=== PATIENT | female | born 1985 | race Caucasian/White ===

== ENCOUNTER 2016-08-05 22:07 | Emergency (ER) | payer MEDICAID ==
[~2016-08-05] VITALS: Ht 160 cm; Wt 77.0 kg
[~2016-08-05 22:07] MED LIST: FERR-31 PO; FOLI-49 PO; IBUP-1542 PO; PRENAT PO
[2016-08-05 22:09] VITALS: Ht 160 cm; Wt 77.0 kg
[2016-08-05] MEDS ORDERED: DIPHENHYDRAMINE 50 MG INJ IM ONE (22:30)
[2016-08-05 22:54] LABS: ADD SCAN DIFF NO
[2016-08-05 22:55] LABS: BASOPHILS % 0.2 % (0.0-2.0); EOSINOPHILS # 0.2 10^3/ul (0.0-0.5); EOSINOPHILS % 2.1 % (0.0-7.0); HEMATOCRIT 34.3 % (37.0-47.0); HEMOGLOBIN 11.6 g/dl (12.0-16.0); LYMPHOCYTES # 2.4 10^3/ul (0.8-2.9); LYMPHOCYTES % 28.3 % (15.0-51.0); MEAN CORPUSCULAR HEMOGLOBIN 29.1 pg (29.0-33.0); MEAN CORPUSCULAR HGB CONC 33.8 g/dl (32.0-37.0); MEAN CORPUSCULAR VOLUME 86.2 fl (82.0-101.0); MEAN PLATELET VOLUME 11.3 fl (7.4-10.4); MONOCYTE # 0.6 10^3/ul (0.3-0.9); MONOCYTES % 7.3 % (0.0-11.0); NEUTROPHIL # 5.1 10^3/ul (1.6-7.5); NEUTROPHILS % 60.8 % (39.0-77.0); PLATELET COUNT 236 10^3/UL (140-415); RED BLOOD COUNT 3.98 10^6/ul (4.20-5.40); RED CELL DISTRIBUTION WIDTH 12.8 % (11.5-14.5); WHITE BLOOD COUNT 8.4 10^3/ul (4.8-10.8)
[2016-08-05 22:57] LABS: ADD UMIC YES; URINE BILIRUBIN (Dip) NEGATIVE (NEGATIVE); URINE BLOOD (Dip) TRACE (NEGATIVE); URINE COLOR LT. YELLOW (YELLOW); URINE GLUCOSE (Dip) NEGATIVE (NEGATIVE); URINE KETONES (Dip) NEGATIVE (NEGATIVE); URINE LEUKOCYTE ESTERASE (Dip) NEGATIVE (NEGATIVE); URINE NITRITE (Dip) NEGATIVE (NEGATIVE); URINE TOTAL PROTEIN (Dip) TRACE (NEGATIVE); URINE UROBILINOGEN (Dip) 0.2 E.U./dL (0.1-1.0)
[2016-08-05 23:06] LABS: BACTERIA,URINE MODERATE; SQUAMOUS EPITHELIAL CELL,UR MANY; URINE RBCS 0-2 /HPF (0)
[2016-08-05 23:08] LABS: ALBUMIN 3.1 g/dl (3.3-4.9); ALBUMIN/GLOBULIN RATIO 0.88; CALCIUM 8.7 mg/dl (8.4-10.2); CREATININE 0.44 mg/dl (0.44-1.00); POTASSIUM 3.8 mmol/L (3.5-5.1); TOTAL PROTEIN 6.6 g/dl (6.1-8.1)
--- NOTE | 2016-08-05 23:23 | ERD ---
ER Documentation Chief Complaint Date/Time DATE: 08/05/16 TIME: 23:21 Chief Complaint Pt reports all over itchiness for a month. Pt 8 months preg HPI 31-year-old female presents to emergency department for complaints of itching all over the body for 1 month now. Patient denies eating something new or different. Patient is approximately 8 months , denies any abdominal pain flank pain. Patient denies any hematuria or dysuria. Patient denies any fever or chills. Patient denies any family members with the same type of rash. Patient did not take any medications to help with him. Patient denies any lip swelling, tongue swelling or stridor. Patient denies any shortness of breath or wheezing. Patient denies any problems with the . Patient is due date is next month, September 15. ROS All systems reviewed and are negative except as per history of present illness. Medications Home Meds Active Scripts Ibuprofen* (Motrin*) 600 Mg Tab, 600 MG PO Q6, #20 TAB Prov:JAZLYN KEMP MD 10/08/14 Reported Medications Ferrous Sulfate (Iron Supplement) 1 Tab Tablet, 1 TAB PO DAILY 09/10/14 Folic Acid* (Folic Acid*) 1 Mg Tablet, 1 MG PO DAILY, TAB 09/10/14 Multivit/Min/Fol Ac/Iron/Pren* ( S*) 1 Tab Tab, 1 TAB PO DAILY, TAB 07/13/14 Allergies Allergies: Coded Allergies: No Known Allergy (Unverified , 07/13/14) PMhx/Soc Medical and Surgical Hx: pt denies Medical Hx, pt denies Surgical Hx History of Surgery: No Anesthesia Reaction: No Hx Neurological Disorder: No Hx Respiratory Disorders: No Hx Cardiac Disorders: No Hx Psychiatric Problems: No Hx Miscellaneous Medical Probl: No Hx Alcohol Use: No Hx Substance Use: No FmHx Family History: No coronary disease, No diabetes, No other Physical Exam Vitals Vital Signs Date Time Temp Pulse Resp B/P Pulse Ox O2 Delivery O2 Flow Rate FiO2 08/05/16 22:09 98.3 93 18 129/82 99 Physical Exam GENERAL: The patient is well developed and appropriate for usual state of health, in no apparent distress. CHEST: Clear to auscultation bilaterally. There are no rales, wheezes or rhonchi. HEART: Regular rate and rhythm. No murmurs, clicks, rubs or gallops. No S3 or S4. ABDOMEN: Soft, gravid abdomen. Good bowel sounds. No rebound or guarding. No gross peritonitis. No gross organomegaly or masses. No Zhang sign or McBurney point tenderness. BACK: No midline or flank tenderness. EXTREMITIES: Equal pulses bilaterally. There is no peripheral clubbing, cyanosis or edema. No focal swelling or erythema. Full range of motion. Grossly neurovascularly intact. NEURO: Alert and oriented. Cranial nerves 2-12 intact. Motor strength in all 4 extremities with 5/5 strength. Sensation grossly intact. Normal speech and gait. SKIN: Maculopapular rash noted over the body. There is no apparent ecchymosis or petechia. The skin is warm and dry. HEMATOLOGIC AND LYMPHATIC: There is no evidence of excessive bruising or lymphedema. No gross cervical, axillary, or inguinal lymphadenopathy. Result Diagram: 08/05/16224108/05/162241 Results 24 hrs Laboratory Tests Test 08/05/16 22:42 White Blood Count 8.410^3/ul Red Blood Count 3.9810^6/ul Hemoglobin 11.6g/dl Hematocrit 34.3% Mean Corpuscular Volume 86.2fl Mean Corpuscular Hemoglobin 29.1pg Mean Corpuscular Hemoglobin Concent 33.8g/dl Red Cell Distribution Width 12.8% Platelet Count 74038^3/UL Mean Platelet Volume 11.3fl Neutrophils % 60.8% Lymphocytes % 28.3% Monocytes % 7.3% Eosinophils % 2.1% Basophils % 0.2% Nucleated Red Blood Cells % 0.0/100WBC Neutrophils # 5.110^3/ul Lymphocytes # 2.410^3/ul Monocytes # 0.610^3/ul Eosinophils # 0.210^3/ul Basophils # 0.010^3/ul Nucleated Red Blood Cells # 0.010^3/ul Urine Color LT. YELLOW Urine Clarity CLEAR Urine pH 7.0 Urine Specific Vernalis 1.010 Urine Ketones NEGATIVE Urine Nitrite NEGATIVE Urine Bilirubin NEGATIVE Urine Urobilinogen 0.2 E.U./dL Urine Leukocyte Esterase NEGATIVE Urine Microscopic RBC 0-2/HPF Urine Microscopic WBC 2-5/HPF Urine Squamous Epithelial Cells MANY Urine Bacteria MODERATE Urine Hemoglobin TRACE Urine Glucose NEGATIVE% Urine Total Protein TRACE Sodium Level 134mmol/L Potassium Level 3.8mmol/L Chloride Level 108mmol/L Carbon Dioxide Level 22mmol/L Anion Gap 8 Blood Urea Nitrogen 10mg/dl Creatinine 0.44mg/dl Glucose Level 111mg/dl Calcium Level 8.7mg/dl Total Bilirubin 0.0mg/dl Direct Bilirubin 0.00mg/dl Indirect Bilirubin 0.0mg/dl Aspartate Amino Transf (AST/SGOT) 14IU/L Alanine Aminotransferase (ALT/SGPT) 21IU/L Alkaline Phosphatase 389IU/L Total Protein 6.6g/dl Albumin 3.1g/dl Globulin 3.50g/dl Albumin/Globulin Ratio 0.88 Lipase 35U/L Current Medications Medications (Trade) Dose Ordered Sig/Deepika Route PRN Reason Start Time Stop Time Status Last Admin Dose Admin Diphenhydramine HCl (Benadryl) 50 mg ONCE ONCE IM 08/05/16 22:30 08/05/16 22:31 DC 08/05/16 22:42 Famotidine (Pepcid) 20 mg ONCE ONCE PO 08/06/16 00:00 08/06/16 00:01 DC 08/05/16 23:55 Benadryl was given here in the emergency department, after treatment, patient verbalized feeling much better. Procedures/MDM Medical decision making: Patient's rash nonspecific at this time, liver function tests are normal, can be allergy, can be dermatitis. No symptoms of any anaphylactic shock, stridor, oral airway obstruction. No symptoms of any contagious rash at this time. Prescription was given for Benadryl, Pepcid, is advised to follow-up with primary care doctor in 2-3 days for reevaluation of symptoms. Patient was advised to return to emergency department for any worsening symptoms Departure Diagnosis: Primary Impression: Rash Condition: Stable Patient Instructions: Self-Care for Skin Rashes DYLON LANDRUM NP Aug 05, 2016 23:23
[2016-08-06] MEDS ORDERED: FAMOTIDINE 20 MG TAB PO ONE
[2016-08-06] MEDS ORDERED: FAMO-18 PO (00:13)
[2016-08-06] MEDS ORDERED: BEN50 PO (00:13)
== END 2016-08-06 00:29 | disposition home or self-care (01) ==
LOC: FTE 22:07
DX: R21 Rash and other nonspecific skin eruption (principal)
CPT/HCPCS: 80053; 81001; 83690; 85025; J1200; Z7610; 36415; 81003; 96372

== ENCOUNTER 2016-08-09 12:27 | Outpatient (CLI) | payer MEDICAID ==
[~2016-08-09] VITALS: Ht 152.4 cm; Wt 76.5 kg
[~2016-08-09 12:27] MED LIST changes: +BEN50 PO; +FAMO-18 PO
[2016-08-09 12:38] VITALS: BP 111/68; PULSE 19; RESP 18; Ht 152.4 cm; Wt 76.5 kg
--- NOTE | 2016-08-09 13:35 | RADRPT ---
PROCEDURE: US OB biophysical profile. CLINICAL INDICATION: decreased movements, abdominal pain TECHNIQUE: Multiple sonographic images of the pelvis were obtained. The images were reviewed on a PACS workstation. COMPARISON: No prior studies are available for comparison. FINDINGS: There is a single viable intrauterine gestation. Cardiac activity is present with 137 beats per min [place]. There is a vertex presentation. The placenta is anterior. There is no evidence of placental abruption. There is a decreased amount of amniotic fluid with an ROBSON = 7.0 cm. Biophysical profile: movement 2/2 tone 2/2. breathing 2/2 ORBSON 2/2 Total 11/28 RPTAT: AA . IMPRESSION: Normal biophysical profile. Slightly decreased ROBSON. .Marlon Alexis MD, Date Time Electronically viewed and signed by .Marlon Alexis MD, on 08/09/2016 13:35 .S/
[2016-08-09 13:52] LABS: ALBUMIN 2.9 g/dl (3.3-4.9)
[2016-08-09 13:55] LABS: BILIRUBIN,INDIRECT 0.2 mg/dl (0-1.1); BILIRUBIN,TOTAL 0.2 mg/dl (0.2-1.3); TOTAL PROTEIN 6.3 g/dl (6.1-8.1)
[2016-08-09] MEDS ORDERED: URSO300C3 PO (14:26)
--- NOTE | 2016-08-09 14:49 | QN ---
Documentation Comment 31-year-old with IUP at 34 weeks and 3 days with care with Dr. Woodson presented to triage with complaint of lower abdominal pain and whole body itching. Patient reports itching of the whole body as well as palms. She presented about 2 weeks ago with the same symptoms. She had her LFT at that time that was normal. She was started on Benadryl that did not help with the itching then subsequently she started on ursodiol 2 days ago but is not effective. Patient denies any leaking of fluid, vaginal bleeding or decreased movement or contractions. Her LFT today normal. Patient reports prior episodes of same problem in prior she delivered 4 weeks earlier. Physical examination: General appearance: Alert and oriented 4 patient is not in any acute distress Abdomen: soft, non tender. Fundal height consistent with gestational age. NST: Category 1 BPP: 11/28 Chemistry Test 08/09/16 13:15 Total Bilirubin 0.2mg/dl (0.2-1.3) Direct Bilirubin 0.00mg/dl (0.00-0.20) Indirect Bilirubin 0.2mg/dl (0-1.1) Aspartate Amino Transf (AST/SGOT) 17IU/L (15-46) Alanine Aminotransferase (ALT/SGPT) 24IU/L (13-69) Alkaline Phosphatase 334IU/L (42-121) H Total Protein 6.3g/dl (6.1-8.1) Albumin 2.9g/dl (3.3-4.9) L Bile acid drawn today. LFTs today normal Assessment: 31-year-old with IV at 34 weeks and 3 days Whole body itching, including palms. Did not resolve with Benadryl. Currently receiving ursodiol 3 times daily 300 mg cannot rule out cholestasis of . Patient similar episodes in prior status post delivery. Bile acids drawn today Increased risk of cholestasis and subsequent discussed She was advised to receive a dose of steroids today and follow up tomorrow in the triage with a second dose of steroids due to possibility of delivery below 37 weeks if confirmed to have cholelithiasis of Steroids could potentially also help with her itching as well. Promethazine as needed 3 times daily also advised if she continued to have itching Patient to continue having testing through the NST BPP every 3 days until the bile acids are available with a close follow-up and monitoring with primary OB Dr. Woodson next labor precaution for the cazares count discussed with the patient. Patient verbalized understanding plan of care. STEFANY NELSON MD Aug 09, 2016 14:49
[2016-08-09] MEDS ORDERED: BETAMET NA PHOS/AC(6 MG/ML) 5ML INJ IM ONE (15:00)
--- NOTE | 2016-08-09 15:22 | TRIAGE ---
OB Triage Datetime Report Generated by CPN: 08/09/2016 15:22 Datetime: 08/09/2016 15:00 Stage of : OB Triage Maternal Assessment Level of Consciousness: Fully Conscious DTR's/Clonus: DTRs 1+ Headache: Denies Breath Sounds, Left: Clear and Equal Breath Sounds, Right: Clear and Equal Nausea/Vomiting: Denies RUQ Epigastric Pain: Denies Labor Evaluation Frequency: IRRE Monitor Mode: External Duration (sec)2399: 40-60 Quality: Mild Pattern: Normal: <= 5 Contractions in 10 Minutes Resting Tone Reed: Relaxed Heart Rate FHR Baseline Rate: 125 Monitor Mode: External US Variability: Moderate 6-25 bpm Accelerations: 15X15 Decelerations: None Category: Category I Pain Assessment Pain Scale: 4 Pain Presence: Constant Pain Type: Dull Pain Location: Abdomen Pain Goal: 3 Vaginal Exam Dilatation (cms): 0.0 Effacement (%): 0 Station: -3 Exam By: ANTHONYAMILASHONDA,RN Membrane Status: Intact Datetime: 08/09/2016 14:44 Maternal Assessment Level of Consciousness: Fully Conscious DTR's/Clonus: DTRs 1+ Headache: Denies Blurred Vision: No Respiratory Effort: Unlabored Breath Sounds, Left: Clear and Equal Breath Sounds, Right: Clear and Equal Nausea/Vomiting: Denies RUQ Epigastric Pain: Denies Facial Edema: None Labor Evaluation Frequency: IRRE Monitor Mode: External Duration (sec)2399: 40-60 Quality: Mild Pattern: Normal: <= 5 Contractions in 10 Minutes Resting Tone Reed: Relaxed Heart Rate FHR Baseline Rate: 125 Monitor Mode: External US Variability: Moderate 6-25 bpm Accelerations: 15X15 Decelerations: None Category: Category I Pain Assessment Pain Scale: 4 Pain Presence: Constant Pain Type: Dull Pain Location: Abdomen Pain Goal: 3 Membrane Status: Intact Datetime: 08/09/2016 14:02 Stage of : OB Triage Maternal Assessment Level of Consciousness: Fully Conscious DTR's/Clonus: DTRs 1+ Headache: Denies Breath Sounds, Left: Clear and Equal Breath Sounds, Right: Clear and Equal Nausea/Vomiting: Denies RUQ Epigastric Pain: Denies Labor Evaluation Frequency: IRRE Monitor Mode: External Duration (sec)2399: 40-60 Quality: Mild Pattern: Normal: <= 5 Contractions in 10 Minutes Resting Tone Reed: Relaxed Heart Rate FHR Baseline Rate: 125 Monitor Mode: External US Variability: Moderate 6-25 bpm Accelerations: 15X15 Decelerations: None Category: Category I Pain Assessment Pain Scale: 4 Pain Presence: Constant Pain Type: Dull Pain Location: Abdomen Pain Goal: 3 Membrane Status: Intact Datetime: 08/09/2016 13:01 Comments: UNABLE TO KEEP BABY ON MONIOTR. Datetime: 08/09/2016 12:40 Heart Rate FHR Baseline Rate: 135 Monitor Mode: External US Variability: Moderate 6-25 bpm Accelerations: 15X15 Decelerations: None Category: Category I Datetime: 08/09/2016 12:37 Assessment Type: Triage Maternal Assessment Level of Consciousness: Fully Conscious DTR's/Clonus: DTRs 2+; No Clonus Headache: Denies Blurred Vision: No Respiratory Effort: Unlabored; Regular Rhythm; Equal Expansion Breath Sounds, Left: Clear and Equal Breath Sounds, Right: Clear and Equal Nausea/Vomiting: Denies RUQ Epigastric Pain: Denies Lower Extremities Edema: None Degree: None Upper Extremities Edema: None Degree: None Facial Edema: None Fall Risk Assessment History of Falling: (0) No Secondary Diagnosis: (0) No Ambulatory Aid: (0) Bedrest/Nurse Assist IV Therapy: (0) No Gait: (0) Normal/Bedrest/Immobile Mental Status: (0) Oriented to Own Ability Fall Score: 0 Fall Risk Score Definition: No Risk: No action required Datetime: 08/09/2016 12:36 EGA: 34.3 Datetime: 08/09/2016 12:20 Time of Arrival: 08/09/2016 12:20 Arrived By: Wheelchair Arrived From: Home Chief Complaint: PT CAME IN C/O OF LOWER ABDOMINAL PAIN AND GENERALIZED ITCHING Movement: Present Contractions: Denies/Absent Rupture of Membranes: Denies Vaginal Bleeding: None Vaginal Discharge: Denies Recent Sexual Intercouse: Denies Abdominal Trauma: Not Applicable Patient Complaints: Other Additional Patient Complaints: NONE Initial Plan: MONITOR, NST, BPP, LAB WORK AND BETAMETHASONE
[2016-08-15 18:20] LABS: CHENODEOXYCHOLIC ACID 1.2 umol/L (< OR = 3.1); CHOLIC ACID 1.7 umol/L (< OR = 1.8); DEOXYCHOLIC ACID <0.5 umol/L (< OR = 2.4); TOTAL BILE ACIDS 2.9 umol/L (< OR = 6.8)
== END 2016-08-09 15:30 | disposition home or self-care (01) ==
LOC: OBT 12:27 → L-D 12:28 → OBT 15:30
PROVIDERS: ATTEND Obstetrics & Gynecology
DX: O26.893 Other specified pregnancy related conditions, third trimester (principal); O36.8130 Decreased fetal movements, third trimester, not applicable or unspecified; R10.30 Lower abdominal pain, unspecified; Z3A.34 34 weeks gestation of pregnancy
CPT/HCPCS: 36415; 76818; 80076; 83789; 96372; J0702; Z7500; G0463

== ENCOUNTER 2016-08-10 13:52 | Outpatient (CLI) | payer MEDICAID ==
[~2016-08-10] VITALS: Ht 154.9 cm; Wt 78.4 kg
[~2016-08-10 13:52] MED LIST changes: +URSO300C3 PO
[2016-08-10 14:00] VITALS: Ht 154.9 cm; Wt 78.4 kg
[2016-08-10 14:01] VITALS: BP 117/59; PULSE 78
--- NOTE | 2016-08-10 14:29 | RADRPT ---
PROCEDURE: US OB biophysical profile. CLINICAL INDICATION: decreased movements, labor TECHNIQUE: Multiple sonographic images of the pelvis were obtained. The images were reviewed on a PACS workstation. COMPARISON: Yesterday FINDINGS: There is a single viable intrauterine gestation. Cardiac activity is present with 123 beats per min [place]. There is a vertex presentation. The placenta is anterior. There is no evidence of placental abruption. There is a normal amount of amniotic fluid with an ROBSON = 14.0 cm. Biophysical profile: movement 2/2 tone 2/2. breathing 2/2 ROBSON 2/2 Total 11/28 RPTAT: AA . IMPRESSION: Normal biophysical profile. . .Marlon Alexis MD, MD Date Time Electronically viewed and signed by .Marlon Alexis MD, MD on 08/10/2016 14:28 .S/
[2016-08-10] MEDS ORDERED: BETAMET NA PHOS/AC(6 MG/ML) 5ML INJ IM ONE (14:30)
--- NOTE | 2016-08-10 15:56 | CONS ---
Date/Time of Note Date/Time of Note DATE: 08/10/16 TIME: 15:50 Consultation Date/Type/Reason Admit Date/Time Initial Consult Date August 10, 2016 OB triage consult Reason for Consultation The second dose of betamethasone was given . she will continue her care in [facility]ST clinic 24 HR Interval Summary Free Text/Dictation This patient is a 31 years old 3 para 2 whose EDC is September 09, 2016 which makes her 34 weeks and 4 days She has been seen in the clinic in the past due to cholestasis of and she was placed on Actigall 300 mg taking 3 times a day today she came here for further monitoring and to receive the second injection of betamethasone in case of premature delivery On examining her her vital signs are stable blood pressure 117/59 pulse rate 78 respiration 18 temperature 98 point heart tone appear to be normal with good variability and acceleration no deceleration she has very rare contractions which is not felt by the pain Current Medications Medications (Trade) Dose Ordered Sig/Deepika Route PRN Reason Start Time Stop Time Status Last Admin Dose Admin Betamethasone Acet/Betameth SodPhos (Celestone Soluspan) 12 mg ONCE ONCE IM 08/10/16 14:30 08/10/16 14:31 DC 08/10/16 14:31 12 MG Detailed Summary Eyes: No discharge, No no complaints, No other, No pain, No redness, No visual change ENT: No bleeding, No congestion, No discharge, No dysphagia, No no complaints, No other, No pain, No sore throat Respiratory: No cough, No no complaints, No other, No pain, No pleuritic pain, No shortness of breath, No sputum, No wheezing Cardiovascular: No chest pain, No edema, No lightheadedness, No no complaints, No orthopenea, No other, No palpitations, No paroxysmal nocturnal dyspnea Gastrointestinal: No blood, No constipation, No decreased appetite, No diarrhea , No flatus, No nausea, No no complaints, No other, No pain, No passing stool, No vomiting Genitourinary: No bleeding, No discharge, No dysuria, No flank pain, No hematuria, No no complaints, No other Musculoskeletal: No back pain, No bone/joint pain, No neck pain, No no complaints, No other, No restricted range of motion, No swelling Skin: other (Some erythema of both hands but not anywhere else in her body), No bruising, No erythema, No laceration, No no complaints, No pruritis, No rash, No skin lesions Neurologic: No confusion, No dizziness, No focal-weakness, No headache, No no complaints, No other, No seizure, No syncope Endocrine: No dry skin, No no complaints, No other, No polydypsia, No polyuria , No temp intolerance Lymphatic: No adenopathy, No lymphadema, No no complaints, No other, No tender nodes Exam/Review of Systems Vital Signs Vitals Vital Signs Date Time Temp Pulse Resp B/P Pulse Ox O2 Delivery O2 Flow Rate FiO2 08/10/16 14:01 98.2 78 117/59 PATY GARCIA MD Aug 10, 2016 15:56
== END 2016-08-10 15:30 | disposition home or self-care (01) ==
LOC: L-D 13:52 → OBT 13:52
PROVIDERS: ATTEND Obstetrics & Gynecology
DX: O26.613 Liver and biliary tract disorders in pregnancy, third trimester (principal); K83.1 Obstruction of bile duct; Z3A.34 34 weeks gestation of pregnancy
CPT/HCPCS: 76818; 96372; J0702; Z7500; G0463

== ENCOUNTER 2016-08-22 14:43 | Inpatient (IN) | payer MEDICAID ==
[~2016-08-22] VITALS: Ht 154.9 cm; Wt 70.0 kg
[~2016-08-22 14:43] MED LIST changes: -BEN50 PO; -FAMO-18 PO; -IBUP-1542 PO
[2016-08-22 14:54] VITALS: Ht 154.9 cm; Wt 70.0 kg
[2016-08-22 14:55] VITALS: BP 121/74; PULSE 85; RESP 20
[2016-08-22] MEDS ORDERED: METHYLERGONOVINE 0.2 MG INJ IM PRN (15:00)
[2016-08-22] MEDS ORDERED: MISOPROSTOL 200 MCG TAB PR PRN (15:00)
[2016-08-22] MEDS ORDERED: BUTORPHANOL 2 MG INJ IV PRN (15:00)
[2016-08-22] MEDS ORDERED: ACETAMINOPHEN/CODEINE #3 TAB PO PRN (15:00)
[2016-08-22] MEDS ORDERED: OXYTOCIN 30 UNITS/LR 500 ML IV SCH ×2 (15:00)
[2016-08-22] MEDS ORDERED: CARBOPROST 250 MCG INJ IM PRN (15:00)
[2016-08-22] MEDS ORDERED: IBUPROFEN 600 MG TAB PO PRN (15:00)
[2016-08-22] MEDS ORDERED: OXYTOCIN 30 UNITS/LR 500 ML IV PRN (15:00)
[2016-08-22] MEDS ORDERED: LIDOCAINE 1% (MPF) 30 ML INJ INJ PRN (15:00)
[2016-08-22] MEDS: LACTATED RINGER'S 1,000 ML IV SCH ×2 (15:11→22:38)
[2016-08-22 15:58] LABS: ADD SCAN DIFF NO
[2016-08-22 16:00] LABS: BASOPHILS % 0.2 % (0.0-2.0); EOSINOPHILS # 0.2 10^3/ul (0.0-0.5); EOSINOPHILS % 2.8 % (0.0-7.0); HEMATOCRIT 33.9 % (37.0-47.0); HEMOGLOBIN 11.2 g/dl (12.0-16.0); LYMPHOCYTES # 1.9 10^3/ul (0.8-2.9); LYMPHOCYTES % 23.3 % (15.0-51.0); MEAN CORPUSCULAR HEMOGLOBIN 28.7 pg (29.0-33.0); MEAN CORPUSCULAR VOLUME 86.9 fl (82.0-101.0); MEAN PLATELET VOLUME 11.9 fl (7.4-10.4); MONOCYTE # 0.5 10^3/ul (0.3-0.9); MONOCYTES % 6.4 % (0.0-11.0); NEUTROPHIL # 5.5 10^3/ul (1.6-7.5); NEUTROPHILS % 66.5 % (39.0-77.0); PLATELET COUNT 215 10^3/UL (140-415); WHITE BLOOD COUNT 8.2 10^3/ul (4.8-10.8)
[2016-08-22 16:09] LABS: INR 0.8; PROTIME 11.1 Sec (12.2-14.2); PT RATIO 0.9
[2016-08-22 16:10] LABS: PARTIAL THROMBOPLASTIN TIME 25.2 Sec (25.0-35.0)
[2016-08-22] MEDS ORDERED: DINOPROSTONE 10 MG VAG SUPP VAG ONE (16:30)
[2016-08-22 17:59] LABS: ADD UMIC YES; URINE BILIRUBIN (Dip) NEGATIVE (NEGATIVE); URINE BLOOD (Dip) TRACE (NEGATIVE); URINE COLOR LT. YELLOW (YELLOW); URINE GLUCOSE (Dip) NEGATIVE (NEGATIVE); URINE KETONES (Dip) NEGATIVE (NEGATIVE); URINE LEUKOCYTE ESTERASE (Dip) TRACE (NEGATIVE); URINE NITRITE (Dip) NEGATIVE (NEGATIVE); URINE TOTAL PROTEIN (Dip) 2+ (NEGATIVE); URINE UROBILINOGEN (Dip) 0.2 E.U./dL (0.1-1.0)
[2016-08-22] MEDS ORDERED: LACTATED RINGER'S 1,000 ML IV PRN (18:00)
[2016-08-22 18:08] LABS: BACTERIA,URINE MANY; SQUAMOUS EPITHELIAL CELL,UR MANY; URINE RBCS 0-2 /HPF (0)
[2016-08-22 18:11] LABS: ALBUMIN 2.8 g/dl (3.3-4.9)
[2016-08-22 18:12] LABS: POTASSIUM 3.7 mmol/L (3.5-5.1)
[2016-08-22 18:14] LABS: ALBUMIN/GLOBULIN RATIO 0.84; BILIRUBIN,INDIRECT 0.2 mg/dl (0-1.1); BILIRUBIN,TOTAL 0.2 mg/dl (0.2-1.3); CREATININE 0.53 mg/dl (0.44-1.00); TOTAL PROTEIN 6.1 g/dl (6.1-8.1)
[2016-08-22 18:15] LABS: CALCIUM 8.6 mg/dl (8.4-10.2); URIC ACID 5.2 mg/dl (3.1-7.9)
[2016-08-23] MEDS ORDERED: AL HYDROX/MG HYDROX/SIMETH 30 ML CUP PO ONE (02:30)
--- NOTE | 2016-08-23 04:53 | HP ---
Date/Time of Note Date/Time of Note DATE: 08/23/16 TIME: 04:36 OB - History Hx of Present Free Text/Dictation 30y.0 A0 at 36w2d was brought for induction for severe oligohyramnios with AFI1.8cm and also cholestasis was suspected due to generalized body itiching but SBA and ap was high admitted for induction of labor with cervidil Chief Complaint: for induction of labor for severe oligohydramnios Estimated Due Date: September 17, 2016 : 3 Para: 2 Spontaneous : 0 Therapeutic : 0 Care: Limited Care Ultrasounds: Normal mid trimester US Obstetrical Complications: Other (oligoharamnios) Medical Complications: Other (cholestasis) Past Family/Social History * Past Medical, Surgical, Family and Obstetric Histories reviewed from chart. Blood Type: O+ Rubella: immune RPR/VDRL: Negative GBS Status: Negative HBsAG: Negative OB Admission Exam Vital Signs Vital Signs Vital Signs Date Time Temp Pulse Resp B/P Pulse Ox O2 Delivery O2 Flow Rate FiO2 08/22/16 14:55 97.8 85 20 121/74 Room Air Physical Exam HEENT: WNL Heart: Rhythm Normal Lungs: Clear, Equal Abdomen: WNL Extremities: Normal Reflexes: Normal Cervical Dilatation: 1cm Effacement: 50% Station: -3 Membranes: Intact Amniotic Fluid: Unevaluable Heart Rate: 140's Accelerations: Accelerations Present Decelerations: Variable Decelerations Varibility: Moderate Contractions on Admission: >10 Minutes Apart Intensity: Mild Last 72 hours Lab Results CBC & BMP 08/22/16 15:05 Liver Function Test 08/22/16 15:05 Alanine Aminotransferase (ALT/SGPT) 23 Albumin 2.8 L Alkaline Phosphatase 388 H Aspartate Amino Transf (AST/SGOT) 17 Direct Bilirubin 0.00 Total Protein 6.1 OB Assessment/Plan Reason for admission: induction of labor Other Assessment: [id number] with severe oligohydramnios Plan: Induction Induction Method: per Misoprostol Protocol MARIJA ELMORE MD August 23, 2016 04:48
--- NOTE | 2016-08-23 04:58 | LDN ---
Date/Time of Note Date/Time of Note DATE: 08/23/16 TIME: 04:56 Delivery Summary normal vaginal delivery Weeks of Gestation 36w2d Placenta Delivered: Spontaneously Meconium: none Episiotomy: No Perineal laceration: 0 Anesthesia type: None Estimated blood loss: 200 Sponge & Needle done & correct: Yes All needle counts correct: Yes Any foreign bodies felt in the: No Problems: Infant Delivery Information Sex Infant Sex: female Apgars 1 Minute: 8 5 Minute: 9 Suctioning Nose & mouth suctioned at queta: Yes Delee suction performed: No Umbilical Cord Umbilical cord with: 3 Vessels Cord presentations: no nuchal cord Cord Blood was obtained: Yes Mother & Baby Disposition Disposition Mom & Baby to Maternity; Good: Yes Mom transferred to: Other () Baby to NICU: No MARIJA ELMORE MD August 23, 2016 04:58
[2016-08-23] MEDS ORDERED: CARBOPROST 250 MCG INJ IM PRN (06:30)
[2016-08-23] MEDS ORDERED: WITCH HAZEL/GLYCERIN PAD PR PRN (06:30)
[2016-08-23] MEDS ORDERED: LANOLIN 7 GM TUBE TOP PRN (06:30)
[2016-08-23] MEDS ORDERED: BENZOCAINE 20% 56 ML SPRAY TOP PRN (06:30)
[2016-08-23] MEDS ORDERED: OXYCODONE/ASPIRIN (4.88/325) TAB PO PRN ×2 (06:30)
[2016-08-23] MEDS ORDERED: METHYLERGONOVINE 0.2 MG INJ IM PRN (06:30)
[2016-08-23] MEDS ORDERED: MISOPROSTOL 200 MCG TAB PR PRN (06:30)
[2016-08-23] MEDS ORDERED: ZOLPIDEM 5 MG TAB PO PRN (06:30)
[2016-08-23] MEDS ORDERED: OXYTOCIN 30 UNITS/LR 500 ML IV PRN (06:30)
[2016-08-23] MEDS: IBUPROFEN 600 MG TAB PO SCH ×3 (07:16→17:18)
[2016-08-23 08:00] VITALS: BP 109/60; PULSE 84; RESP 18
[2016-08-23] MEDS: SENNA/DOCUSATE NA (8.6MG/50MG) TAB PO SCH ×2 (08:56→21:12)
[2016-08-23 11:58] VITALS: BP 123/63; PULSE 73; RESP 19
[2016-08-23 15:00] VITALS: BP 115/68; PULSE 70; RESP 19
[2016-08-23 19:45] VITALS: BP 113/64; PULSE 86; RESP 18
--- NOTE | 2016-08-23 22:05 | NSTRPT ---
NST Information Datetime Report Generated by CPN: 08/23/2016 22:05 Datetime: 08/22/2016 13:34 NST Information EGA: 36.2 Test Number: 4 Time on Monitor: 08/22/2016 13:57 Time off Monitor: 08/22/2016 14:20 NST Duration (Min): 23 Reason for NST: Cholestasis Pulse: 77 Resp: 16 SBP: 117 DBP: 66 Test Evaluation NST Interventions: None Patient States Movement: Present Contraction Frequency: no uc FHR Baseline : 145 Variability: Moderate 6-25bpm Accelerations: 15X15 Decelerations: None FHR Category: Category I NST Results: Reactive Provider Notified: Dr Woodson Comments: To u/s, cephalic, key 1.8 Dr Pedro recommends delivery at this time. Report called to Dr Woodson, order received for admit t o L_D. Report to August RN in L_D. [id number] explained to pt, states understanding and denies further q uestions at this time. Pt to L_D Electronically Signed By E-Signature: with User ID: [id number] Datetime: 08/18/2016 12:56 NST Information EGA: 35.5 NST Duration (Min): 31 Datetime: 08/15/2016 13:00 NST Information EGA: 35.2 NST Duration (Min): 21 Datetime: 08/11/2016 14:35 NST Information EGA: 34.5 NST Duration (Min): 25
[2016-08-24 00:21] VITALS: BP 107/62; PULSE 77; RESP 18
[2016-08-24] MEDS: IBUPROFEN 600 MG TAB PO SCH ×4 (00:21→17:36)
[2016-08-24 04:00] VITALS: BP 110/61; PULSE 72; RESP 18
[2016-08-24 08:00] VITALS: BP 111/61; PULSE 132; RESP 18
[2016-08-24 08:39] LABS: ADD SCAN DIFF NO
[2016-08-24 09:05] LABS: BASOPHILS % 0.4 % (0.0-2.0); EOSINOPHILS # 0.2 10^3/ul (0.0-0.5); EOSINOPHILS % 2.1 % (0.0-7.0); HEMATOCRIT 30.6 % (37.0-47.0); HEMOGLOBIN 9.8 g/dl (12.0-16.0); LYMPHOCYTES # 2.4 10^3/ul (0.8-2.9); LYMPHOCYTES % 30.7 % (15.0-51.0); MEAN CORPUSCULAR HEMOGLOBIN 28.2 pg (29.0-33.0); MEAN CORPUSCULAR VOLUME 88.2 fl (82.0-101.0); MEAN PLATELET VOLUME 11.4 fl (7.4-10.4); MONOCYTE # 0.4 10^3/ul (0.3-0.9); MONOCYTES % 5.6 % (0.0-11.0); NEUTROPHIL # 4.7 10^3/ul (1.6-7.5); PLATELET COUNT 179 10^3/UL (140-415); RED BLOOD COUNT 3.47 10^6/ul (4.20-5.40); RED CELL DISTRIBUTION WIDTH 14.4 % (11.5-14.5); WHITE BLOOD COUNT 7.7 10^3/ul (4.8-10.8)
[2016-08-24] MEDS: SENNA/DOCUSATE NA (8.6MG/50MG) TAB PO SCH ×2 (09:27→21:30)
--- NOTE | 2016-08-24 15:24 | DS ---
Date/Time of Note Date/Time of Note DATE: 08/24/16 TIME: 15:23 Discharge Summary Admission/Discharge Info Admit Date/Time August 22, 2016 at 14:43 Discharge Date/Time Final Diagnosis term Patient Condition: Stable Hospital Course unremarkable Home Meds Reported Medications Ursodiol* (Ursodiol*) 300 Mg Capsule, 300 MG PO TID, CAP 08/09/16 Ferrous Sulfate (Iron Supplement) 1 Tab Tablet, 1 TAB PO DAILY 09/10/14 Folic Acid* (Folic Acid*) 1 Mg Tablet, 1 MG PO DAILY, TAB 09/10/14 Multivit/Min/Fol Ac/Iron/Pren* ( S*) 1 Tab Tab, 1 TAB PO DAILY, TAB 07/13/14 Pending Labs Laboratory Tests Test 08/24/16 08:25 White Blood Count 7.710^3/ul (4.8-10.8) Red Blood Count 3.4710^6/ul (4.20-5.40) Hemoglobin 9.8g/dl (12.0-16.0) Hematocrit 30.6% (37.0-47.0) Mean Corpuscular Volume 88.2fl (82.0-101.0) Mean Corpuscular Hemoglobin 28.2pg (29.0-33.0) Mean Corpuscular Hemoglobin Concent 32.0g/dl (32.0-37.0) Red Cell Distribution Width 14.4% (11.5-14.5) Platelet Count 42009^3/UL (140-415) Mean Platelet Volume 11.4fl (7.4-10.4) Neutrophils % 60.0% (39.0-77.0) Lymphocytes % 30.7% (15.0-51.0) Monocytes % 5.6% (0.0-11.0) Eosinophils % 2.1% (0.0-7.0) Basophils % 0.4% (0.0-2.0) Nucleated Red Blood Cells % 0.0/100WBC (0.0-0.0) Neutrophils # 4.710^3/ul (1.6-7.5) Lymphocytes # 2.410^3/ul (0.8-2.9) Monocytes # 0.410^3/ul (0.3-0.9) Eosinophils # 0.210^3/ul (0.0-0.5) Basophils # 0.010^3/ul (0.0-0.1) Nucleated Red Blood Cells # 0.010^3/ul (0.0-0.0) CHULA DUARTE MD August 24, 2016 15:24
--- NOTE | 2016-08-24 15:25 | PD.PPDC ---
INDUCTION BRAZER Discharge Instruction Condition Patient Condition: Stable Diet Diet: Resume Regular Diet Activity/Restrictions Activity: Normal Activity May Shower Restrictions: No Exercising No Lifting No Driving No Sexual Activity Nothing in the Vagina No [place] No Tampons, douche Wound/Drain Care Instructions Wound/Drain Care Instructions: Wash with soap and water Keep clean and dry Follow-up Follow-up with Physician: 3, Week/Weeks Return to clinic for [employer]ANT Instructions: Fever greater than 101 Chills Worsening abdominal pain Excessive Vaginal Bleeding More than 2 pads per hour Unable to tolerate diet OB Instructions: Breast Tenderness Depression Blurried Vision Headache Surgical Instructions: Incisional Drainage Incisional Redness CHULA DUARTE MD August 24, 2016 15:25
[2016-08-24 16:03] VITALS: BP 112/58; PULSE 77; RESP 18
[2016-08-24 20:00] VITALS: BP 119/70; PULSE 89; RESP 18
[2016-08-25] MEDS: IBUPROFEN 600 MG TAB PO SCH ×3 (00:23→12:45)
[2016-08-25 04:00] VITALS: BP 109/60; PULSE 70; RESP 18
[2016-08-25 08:30] VITALS: BP 113/66; PULSE 78; RESP 17
[2016-08-25] MEDS ORDERED: DIPHTH/TET/ACEL PERTUSS (ADULT) 0.5 ML VIAL IM* ONE (09:00)
[2016-08-25] MEDS: SENNA/DOCUSATE NA (8.6MG/50MG) TAB PO SCH (09:26)
== END 2016-08-25 18:20 | disposition home or self-care (01) | DRG 775 ==
LOC: L-D 14:43 → PP1 08-23 05:43 → EDSTATUS 09-17 14:39
PROVIDERS: ADMIT Obstetrics & Gynecology; ATTEND Obstetrics & Gynecology
PROC: 10E0XZZ Delivery of Products of Conception, External Approach (ICD-10-PCS; principal; 2016-08-23)
DX: O60.14X0 Preterm labor third trimester with preterm delivery third trimester, not applicable or unspecified (principal); O41.03X0 Oligohydramnios, third trimester, not applicable or unspecified; Z3A.36 36 weeks gestation of pregnancy; Z37.0 Single live birth
CPT/HCPCS: 62319; 80053; 81001; 81003; 84560; 85025; 85610; 85730; 86592; 86900; 86901; 87340; 90715; J2590; J7120

== ENCOUNTER 2016-11-29 09:52 | Emergency (ER) | payer MEDICAID ==
[~2016-11-29] VITALS: Ht 157.5 cm; Wt 78.4 kg
[~2016-11-29 09:52] MED LIST changes: -FOLI-49 PO; -PRENAT PO; -URSO300C3 PO
[2016-11-29 09:56] VITALS: Ht 157.5 cm; Wt 78.4 kg
[2016-11-29] MEDS ORDERED: BEN25 PO (10:09)
[2016-11-29] MEDS ORDERED: HC30CR25 TOP (10:09)
--- NOTE | 2016-11-29 10:13 | ERD ---
ER Documentation Chief Complaint Date/Time DATE: 11/29/16 TIME: 10:11 Chief Complaint rash on legs HPI 31-year-old female presents with bilateral lower extremities itching for the past 2-3 weeks. She states that it started her lower ankles and it is spreading up her legs, she has not had this rash anywhere else, denies any itching on her torso, arms or her hands. She states that she has not had anything new, including new foods, medications, lotions or creams. She has not had any fevers or chills. She has not tried anything for her symptoms. ROS All systems reviewed and are negative except as per history of present illness. Medications Home Meds Active Scripts Hydrocortisone* Topical (Hydrocortisone* Topical) 2.5%-28.3 Gm Cream..g., 1 APPLIC TOP BID, #1 TUB Prov:MORRO MADDOX PA-C 11/29/16 Diphenhydramine Hcl* (Benadryl*) 25 Mg Cap, 25 MG PO Q6, #30 CAP Prov:MORRO MADDOX PA-C 11/29/16 Reported Medications Ferrous Sulfate (Iron Supplement) 1 Tab Tablet, 1 TAB PO DAILY 09/10/14 Allergies Allergies: Coded Allergies: No Known Allergy (Unverified , 08/09/16) PMhx/Soc History of Surgery: No Anesthesia Reaction: No Hx Neurological Disorder: No Hx Respiratory Disorders: No Hx Cardiac Disorders: No Hx Psychiatric Problems: No Hx Miscellaneous Medical Probl: No Hx Alcohol Use: No Hx Substance Use: No Physical Exam Vitals Vital Signs Date Time Temp Pulse Resp B/P Pulse Ox O2 Delivery O2 Flow Rate FiO2 11/29/16 09:56 98.1 80 18 117/77 99 Physical Exam General: Well-developed, well-nourished. The patient appears in no acute distress. HEENT: Head is normocephalic, atraumatic. No scleral icterus. Neck: Supple. Nontender. Lungs: Clear to auscultation. Normal air movement. Heart: Regular rate and rhythm. S1 and S2 are normal. No murmurs, gallops, or rubs. Abdomen: Nondistended. Extremities: No clubbing or cyanosis. Moving extremities x 4. No weakness. Neurologic: Alert and oriented 3. No focal deficits. Normal speech and gait. Skin: Bilateral lower extremity erythema, dermatitis, rashes blanchable, no vesicles. No streaking. Procedures/MDM 31-year-old female comes in with dermatitis bilateral lower extremities, symptoms appear to be localized to the legs, and is not spreading to her arms or hands and does not appear to be infectious or scabies. She will be given Benadryl for symptoms as well as topical hydrocortisone cream. No evidence of cellulitis, DVT, HSP, Chris Jey's. Departure Diagnosis: Primary Impression: Rash Condition: Good Patient Instructions: Dermatitis, Non-Specific MORRO MADDOX PA-C Nov 29, 2016 10:12
== END 2016-11-29 10:14 | disposition home or self-care (01) ==
LOC: FTE 09:52
DX: R21 Rash and other nonspecific skin eruption (principal)
CPT/HCPCS: 99283